=== PATIENT | male | born 2000 | race American Indian/Alaskan Native ===

== ENCOUNTER 2021-02-01 12:47 | Inpatient (IN) ==
[2021-02-01 13:27] LABS: Appearance Urine Clear (Clear); Bacteria Urine Automated Negative (Negative); Bilirubin Urine Negative (Negative); Blood Urine 1+ (Negative); Color Urine Yellow; Glucose Urine UA Negative (Negative); Ketones Urine Negative (Negative); Leukocyte Esterase Urine Negative (Negative); Nitrite Urine Negative (Negative); Protein Urine Negative (Negative); RBC Urine Automated 0-4 /hpf (0-4); Urobilinogen Urine Negative (Negative); pH Urine 5.5 (4.5-7.5)
[2021-02-01 13:41] LABS: Basophils # (auto) 0.09 K/uL (0-0.2); Basophils % (auto) 1.4 %; Eosinophils # (auto) 0.23 K/uL (0-0.5); Eosinophils % (auto) 3.7 %; Hemoglobin 15.7 g/dL (14.0-18.0); Mean Corpuscular Hemoglobin 27.7 pg (25-34); Mean Corpuscular Hgb Conc 33.4 g/dL (32-36); Mean Corpuscular Volume 82.9 fL (80-100); Mean Platelet Volume 10.1 fL (7.4-10.4); Monocytes # (auto) 0.47 K/uL (0.11-0.59); Monocytes % (auto) 7.6 %; Neutrophils # (auto) 2.63 K/uL (1.4-6.5); Neutrophils % (auto) 42.3 %; Platelet Count 231 K/uL (130-400); RDW Coefficient of Variation 13.3 % (11.5-14.5); RDW Standard Deviation 40.1 fL (36.4-46.3); Red Blood Count 5.67 M/uL (4.7-6.1); White Blood Count 6.22 K/uL (4.8-10.8)
[2021-02-01 13:48] LABS: Amphetamines+Metham, Urine Neg (Neg); Barbiturates, Urine Neg (Neg); Benzodiazepine, Urine Neg (Neg); Cocaine, Urine Neg (Neg); MDMA (Ecstacy), Urine Neg (Neg); Methadone, Urine Neg (Neg); Opiate, Urine Neg (Neg); Phencyclidine, Urine Neg (Neg)
[2021-02-01 13:58] LABS: Est GFR (African American) 128.1 ml/min; Est GFR (Non-African American) 110.5 ml/min; Potassium 4.5 mmol/L (3.5-5.1)
[2021-02-01 13:59] LABS: Albumin Level 4.2 gm/dl (3.4-5.0); BUN Creatinine Ratio 12.6 (10-20); Calcium 10.1 mg/dl (8.5-10.1); Creatinine Clr Calc Pharmacy 110.5 ml/min
[2021-02-01 14:09] LABS: Acetaminophen < 2 ug/ml (10-30); Albumin Globulin Ratio 0.9 (0.9-2); Bilirubin,Total 0.7 mg/dl (0.2-1); Globulin 4.6 gm/dl (2.5-4.0); Salicylate < 1.7 mg/dl (2.8-20); Thyroid Stimulating Hormone 0.558 uIu/ml (0.300-4.500); Total Protein 8.8 gm/dl (6.4-8.2)
--- NOTE | 2021-02-01 16:28 | Emergency Department Note ---
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 Patient feels he has been angry and stressed about school and he has been reporting that he has been thinking about killing himself by do shooting himself with a gun or overdosing on heroin. Patient reports he has never done heroin before in his life. Home Medications Medication Instructions Recorded Confirmed Type Remeron 15 mg PO HS 02/01/21 02/01/21 History Allergies Allergy/AdvReac Type Severity Reaction Status Date / Time No Known Allergies Allergy Unverified 02/01/21 13:12 Past Med/Surg History Medical History (Updated 02/01/21 @ 19:52 by Jose Wyman) No pertinent family history No pertinent past medical history Surgical History (Updated 02/01/21 @ 16:25 by Jose Wyman) No pertinent past surgical history Social History Smoking Status: Never smoker Preferred Language: Malay Communication Ability: Effective Operations Program Manager Required: No Beliefs That Will Affect Care: None Feels Safe at Home: Declines to Answer Assistive Devices: Contacts Review of Systems A total of 10 systems reviewed and were otherwise negative Physical Exam Vital Signs Vital Signs - 24 hr 02/01/21 13:02 02/01/21 15:30 Temperature 36.8 C Temperature Source Oral Pulse Rate 49 L Pulse Rate [Finger] 60 Respiratory Rate 16 14 Respiratory Effort / Characteristics Non-Labored Spontaneous Respiratory Depth Normal Blood Pressure 115/68 Blood Pressure [Left Arm] 125/84 Blood Pressure Mean 83 Blood Pressure Mean [Left Arm] 97 Pulse Oximetry 99 100 Oxygen Delivery Method Room Air Room Air Sepsis Recent Fever Within 48 Hours No Sepsis New/Unexplained Change in Mental Status N/A Sepsis Action Taken by Nursing No Action Required Physical Exam GENERAL: He is oriented to person, place, and time. He appears well-developed and well-nourished. He does not appear distressed. HENT: Exam performed. - Head: Normocephalic and atraumatic. - Right Ear: External ear normal. No mastoid tenderness. - Left Ear: External ear normal. No mastoid tenderness. - Mouth/Throat: The oropharynx is clear and moist. No trismus in the jaw. No dental abscesses or uvula swelling. No oropharyngeal exudate or tonsillar abscesses. EYES: Conjunctivae and EOM are normal. Pupils are equal, round, and reactive to light. Right eye exhibits no discharge. Left eye exhibits no discharge. No scleral icterus. NECK: Normal range of motion. Neck supple. No JVD present. No spinous process tenderness present. No carotid bruit present. No rigidity. No tracheal deviation and normal range of motion present. No Brudzinski's sign and no Kernig's sign noted. CV: Normal rate, regular rhythm, normal heart sounds and intact distal pulses. There is no peripheral edema. Palpable radial pulses bue. PULM/CHEST: Effort normal and breath sounds normal. No respiratory distress. No stridor. He has no wheezes. He has no rales. - Chest Wall: He exhibits no tenderness. ABD: The abdomen is soft. Bowel sounds are normal. He has no distension. No mass is present. There is no tenderness. There is no rebound, no guarding, no Ha's sign and no tenderness at McBurney's point. Rovsig negative. MUSC/SKEL: Normal range of motion. There is no peripheral edema, tenderness or deformity. LYMPH: No cervical adenopathy. NEURO: He is alert and oriented to person, place, and time. He has normal strength. No cranial nerve deficit or sensory deficit. Coordination and gait normal. GCS eye subscore is 4. GCS verbal subscore is 5. GCS motor subscore is 6. Cerebellar tests wnl. SKIN: Skin is warm and dry. He is not diaphoretic. PSYCH: Depressed and suicidal. Course Course 1304: The patient was evaluated in room A8. A complete history and physical exam was performed 1400: Patient medically cleared. Evaluated psychiatric evaluation and placement. Patient placed in observation at this time. 1726: Patient admitted to 3 S. Medical Decision Making Laboratory Data Result diagrams: 02/01/21 13:24 02/01/21 13:24 Lab Results 02/01/21 02/01/21 02/01/21 Range/Units 13:10 13:10 13:15 WBC (4.8-10.8) K/uL RBC (4.7-6.1) M/uL Hgb (14.0-18.0) g/dL Hct (42-52) % MCV (80-100) fL MCH (25-34) pg MCHC (32-36) g/dL RDW Std Deviation (36.4-46.3) fL RDW Coeff of Bora (11.5-14.5) % Plt Count (130-400) K/uL MPV (7.4-10.4) fL Immature Gran % (Auto) % Neut % (Auto) % Lymph % (Auto) % Stanton % (Auto) % Eos % (Auto) % Baso % (Auto) % Neut # (Auto) (1.4-6.5) K/uL Lymph # (Auto) (1.2-3.4) K/uL Stanton # (Auto) (0.11-0.59) K/uL Eos # (Auto) (0-0.5) K/uL Baso # (Auto) (0-0.2) K/uL Immature Gran # (Auto) (0.00-0.02) K/uL Sodium (136-145) mmol/L Potassium (3.5-5.1) mmol/L Chloride (98-107) mmol/L Carbon Dioxide (21-32) mmol/L Anion Gap (3-11) BUN (7-18) mg/dl Creatinine (0.6-1.4) mg/dl Est Cr Clr Drug Dosing ml/min Est GFR ( Amer) ml/min Est GFR (Non-Af Amer) ml/min BUN/Creatinine Ratio (10-20) Glucose (70-99) mg/dl Calcium (8.5-10.1) mg/dl Total Bilirubin (0.2-1) mg/dl AST (15-37) U/L ALT (12-78) U/L Alkaline Phosphatase (45-117) U/L Total Protein (6.4-8.2) gm/dl Albumin (3.4-5.0) gm/dl Globulin (2.5-4.0) gm/dl Albumin/Globulin Ratio (0.9-2) TSH (0.300-4.500) uIu/ml Urine Color Yellow Urine Appearance Clear (Clear) Urine pH 5.5 (4.5-7.5) Ur Specific [place] 1.020 (1.000-1.030) Urine Protein Negative (Negative) Urine Glucose (UA) Negative (Negative) Urine Ketones Negative (Negative) Urine Blood 1+ H (Negative) Urine Nitrite Negative (Negative) Urine Bilirubin Negative (Negative) Urine Urobilinogen Negative (Negative) Ur Leukocyte Esterase Negative (Negative) Urine WBC (Auto) 1-5 (0-5) /hpf Urine RBC (Auto) 0-4 (0-4) /hpf U Hyaline Cast (Auto) 1-5 (0-5) /lpf U Epithel Cells (Auto) 5-10 H (0-5) /lpf Urine Bacteria (Auto) Negative (Negative) Salicylates (2.8-20) mg/dl Urine Opiates Screen Neg (Neg) Ur Methadone, Qual Neg (Neg) Acetaminophen (10-30) ug/ml Urine Barbiturates Neg (Neg) Ur Phencyclidine (PCP) Neg (Neg) U Amphetamin/Meth Scrn Neg (Neg) MDMA (Ecstasy) Screen Neg (Neg) U Benzodiazepines Scrn Neg (Neg) Ur Cocaine Metabolite Neg (Neg) U Marijuana (THC) Screen Pos H (Neg) Ethyl Alcohol mg/dL (0-3) mg/dl COVID-19 [facility] SARS-CoV-2, RNA, NAAT (NEGATIVE) 02/01/21 02/01/21 02/01/21 Range/Units 13:15 13:24 13:24 WBC 6.22 (4.8-10.8) K/uL RBC 5.67 (4.7-6.1) M/uL Hgb 15.7 (14.0-18.0) g/dL Hct 47.0 (42-52) % MCV 82.9 (80-100) fL MCH 27.7 (25-34) pg MCHC 33.4 (32-36) g/dL RDW Std Deviation 40.1 (36.4-46.3) fL RDW Coeff of Bora 13.3 (11.5-14.5) % Plt Count 231 (130-400) K/uL MPV 10.1 (7.4-10.4) fL Immature Gran % (Auto) 0.0 % Neut % (Auto) 42.3 % Lymph % (Auto) 45.0 % Stanton % (Auto) 7.6 % Eos % (Auto) 3.7 % Baso % (Auto) 1.4 % Neut # (Auto) 2.63 (1.4-6.5) K/uL Lymph # (Auto) 2.80 (1.2-3.4) K/uL [place] # (Auto) 0.47 (0.11-0.59) K/uL Eos # (Auto) 0.23 (0-0.5) K/uL Baso # (Auto) 0.09 (0-0.2) K/uL Immature Gran # (Auto) 0.00 (0.00-0.02) K/uL Sodium 138 (136-145) mmol/L Potassium 4.5 (3.5-5.1) mmol/L Chloride 107 (98-107) mmol/L Carbon Dioxide 26 (21-32) mmol/L Anion Gap 5.0 (3-11) BUN 12 (7-18) mg/dl Creatinine 0.98 (0.6-1.4) mg/dl Est Cr Clr Drug Dosing 110.5 ml/min Est GFR ( Amer) 128.1 ml/min Est GFR (Non-Af Amer) 110.5 ml/min BUN/Creatinine Ratio 12.6 (10-20) Glucose 91 (70-99) mg/dl Calcium 10.1 (8.5-10.1) mg/dl Total Bilirubin 0.7 (0.2-1) mg/dl AST 8 L (15-37) U/L ALT 19 (12-78) U/L Alkaline Phosphatase 93 (45-117) U/L Total Protein 8.8 H (6.4-8.2) gm/dl Albumin 4.2 (3.4-5.0) gm/dl Globulin 4.6 H (2.5-4.0) gm/dl Albumin/Globulin Ratio 0.9 (0.9-2) TSH 0.558 (0.300-4.500) uIu/ml Urine Color Urine Appearance (Clear) Urine pH (4.5-7.5) Ur Specific [place] (1.000-1.030) Urine Protein (Negative) Urine Glucose (UA) (Negative) Urine Ketones (Negative) Urine Blood (Negative) Urine Nitrite (Negative) Urine Bilirubin (Negative) Urine Urobilinogen (Negative) Ur Leukocyte Esterase (Negative) Urine WBC (Auto) (0-5) /hpf Urine RBC (Auto) (0-4) /hpf U Hyaline Cast (Auto) (0-5) /lpf U Epithel Cells (Auto) (0-5) /lpf Urine Bacteria (Auto) (Negative) Salicylates (2.8-20) mg/dl Urine Opiates Screen (Neg) Ur Methadone, Qual (Neg) Acetaminophen (10-30) ug/ml Urine Barbiturates (Neg) Ur Phencyclidine (PCP) (Neg) U Amphetamin/Meth Scrn (Neg) MDMA (Ecstasy) Screen (Neg) U Benzodiazepines Scrn (Neg) Ur Cocaine Metabolite (Neg) U Marijuana (THC) Screen (Neg) Ethyl Alcohol mg/dL (0-3) mg/dl COVID-19 Eval Order SARS-CoV-2, RNA, NAAT NEGATIVE (NEGATIVE) 02/01/21 02/01/21 Range/Units 13:24 13:24 WBC (4.8-10.8) K/uL RBC (4.7-6.1) M/uL Hgb (14.0-18.0) g/dL Hct (42-52) % MCV (80-100) fL MCH (25-34) pg MCHC (32-36) g/dL RDW Std Deviation (36.4-46.3) fL RDW Coeff of Bora (11.5-14.5) % Plt Count (130-400) K/uL MPV (7.4-10.4) fL Immature Gran % (Auto) % Neut % (Auto) % Lymph % (Auto) % Stanton % (Auto) % Eos % (Auto) % Baso % (Auto) % Neut # (Auto) (1.4-6.5) K/uL Lymph # (Auto) (1.2-3.4) K/uL [place] # (Auto) (0.11-0.59) K/uL Eos # (Auto) (0-0.5) K/uL Baso # (Auto) (0-0.2) K/uL Immature Gran # (Auto) (0.00-0.02) K/uL Sodium (136-145) mmol/L Potassium (3.5-5.1) mmol/L Chloride (98-107) mmol/L Carbon Dioxide (21-32) mmol/L Anion Gap (3-11) BUN (7-18) mg/dl Creatinine (0.6-1.4) mg/dl Est Cr Clr Drug Dosing ml/min Est GFR ( Amer) ml/min Est GFR (Non-Af Amer) ml/min BUN/Creatinine Ratio (10-20) Glucose (70-99) mg/dl Calcium (8.5-10.1) mg/dl Total Bilirubin (0.2-1) mg/dl AST (15-37) U/L ALT (12-78) U/L Alkaline Phosphatase (45-117) U/L Total Protein (6.4-8.2) gm/dl Albumin (3.4-5.0) gm/dl Globulin (2.5-4.0) gm/dl Albumin/Globulin Ratio (0.9-2) TSH (0.300-4.500) uIu/ml Urine Color Urine Appearance (Clear) Urine pH (4.5-7.5) Ur Specific [place] (1.000-1.030) Urine Protein (Negative) Urine Glucose (UA) (Negative) Urine Ketones (Negative) Urine Blood (Negative) Urine Nitrite (Negative) Urine Bilirubin (Negative) Urine Urobilinogen (Negative) Ur Leukocyte Esterase (Negative) Urine WBC (Auto) (0-5) /hpf Urine RBC (Auto) (0-4) /hpf U Hyaline Cast (Auto) (0-5) /lpf U Epithel Cells (Auto) (0-5) /lpf Urine Bacteria (Auto) (Negative) Salicylates < 1.7 L (2.8-20) mg/dl Urine Opiates Screen (Neg) Ur Methadone, Qual (Neg) Acetaminophen < 2 L (10-30) ug/ml Urine Barbiturates (Neg) Ur Phencyclidine (PCP) (Neg) U Amphetamin/Meth Scrn (Neg) MDMA (Ecstasy) Screen (Neg) U Benzodiazepines Scrn (Neg) Ur Cocaine Metabolite (Neg) U Marijuana (THC) Screen (Neg) Ethyl Alcohol mg/dL < 3.0 (0-3) mg/dl COVID-19 Eval Order SARS-CoV-2, RNA, NAAT (NEGATIVE) MDM Narrative Observation note Indication: Psych eval/placement Patient, with no past medical history was first seen at 1304 hrs and the observ ation time began at 1400 hrs and was necessary in order to have psych evaluation completed . Upon re-evaluation, 3 hours and 26 minutes of observation revealed that the patient should be admitted to 3 S. Disposition date and time February 01, 2021 1726. Impression & Plan Depression with suicidal ideation Discharge Plan Visit Data Chief Complaint: Mental Health Evaluation Stated Complaint: MHID ED Provider: Jose Wyman Discharge Problem: Depression with suicidal ideation Patient Disposition: Admitted As Inpatient Discharge Instructions Interventions: ED Discharge Assessment Last Done: 02/01/21 17:26
[2021-02-01] MEDS ORDERED: BISMUTH SUBSALICYLATE LIQD 236 ML PO PRN (17:02)
[2021-02-01] MEDS ORDERED: SODIUM CHLORIDE 0.65% NA SOLN 45 ML (OCEAN) PRN (17:02)
[2021-02-01] MEDS ORDERED: MAGNESIUM HYDROXIDE SUSP 30 ML UDC PO PRN (17:02)
[2021-02-01] MEDS ORDERED: ACETAMINOPHEN 325 MG TAB PO PRN (17:02)
[2021-02-01] MEDS ORDERED: hydrOXYzine HCl 25 MG TAB PO PRN ×2 (17:02)
[2021-02-01] MEDS ORDERED: ALUMINUM/MAGNESIUM SUSP 30 ML UDC PO PRN (17:02)
[2021-02-01] MEDS ORDERED: MIRTAZAPINE TAB 15 MG TAB PO SCH (22:00)
--- NOTE | 2021-02-01 22:53 | Electrocardiogram Report ---
Test Reason : Blood Pressure : / mmHG Vent. Rate : 066 BPM Atrial Rate : 066 BPM P-R Int : 140 ms QRS Dur : 106 ms QT Int : 432 ms P-R-T Axes : 068 070 065 degrees QTc Int : 452 ms Sinus rhythm with marked sinus arrhythmia Otherwise normal ECG No previous ECGs available Confirmed by Oneil Trujillo ([id number]) on 02/01/2021 10:52:55 PM Referred By: REFERRED SELF Confirmed By:Oneil Trujillo
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
[2021-02-02] MEDS: hydrOXYzine HCl 25 MG TAB PO SCH (21:08)
[2021-02-03] MEDS ORDERED: MELATONIN 3 MG TAB PO PRN (12:15)
[2021-02-03] MEDS: FLUoxetine HCL 20 MG CAP PO SCH (12:56)
--- NOTE | 2021-02-03 13:01 | Psychiatric Progress Note ---
Date of Service February 03, 2021 Impression / Recommendations Impression 20 yo man with history of depression, self-harm, restricted eating and SI who was admitted for worsening depression, self-harm urges and SI with plans. Diagnostically consistent with MDD in addition to possible BPD. He is felt to be at high acute risk given intermittent SI and self-harm urges and in need of inpatient psychiatric treatment. Discussed medication and treatment options at length including importance of therapy and attending groups. Discussed option of SSRI vs SNRI and he would like to try fluoxetine since he only had one full trial of a previous SSRI (sertraline in high school) and then recently mirtazapine but at low dose for sleep. Discussed medication treatment options in detail. Discussed risks, benefits and alternatives. Patient would like to start fluoxetine for MDD and anxiety and melatonin for sleep phase shift. Restrictive eating has improved since being admitted and he credits the three regularly structured meal times as helpful for preventing this. Counseled on black box warning of potential for emergence of or increased SI and need to let staff know should this occur or should they feel unsafe. Also discussed importance of seeking emergency care following discharge if this side effect occurs in the future. If SI persists could consider addition of low dose Li or abilify for augmentation. 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 Starting fluoxetine 20mg qd for MDD and anxiety and adding melatonin to help with phase shift of sleep. Also has atarax available for qhs for sleep. 02/02/21: The patient was admitted to the [facility] ([facility] mental health unit) on q15 min checks (behavioral with suicide precautions) for safety. The patient will participate in group, recreational, and milieu therapies and will be offered additional individual and family sessions as clinically appropriate. Monitor PO intake. D/C Remeron and ofter Vistaril this hs. Considering Abilify or an SNRI. Patient wanted to defer this discussion until tomorrow. Risk Factors Assessment Do You Have Access To A Gun?: No Protective Factors Assessment Employed: No Interval History Identifying Information 20 yo man with history of depression, self-harm, restricted eating and SI who was admitted for worsening depression, self-harm urges and SI with plans. Chief Complaint "I'm eating better here with scheduled meals". Review of Systems Sleep Information Total Hours of Sleep: 6.5 Sleep Comments: pt awoke due to roommate admit to room. pt on q-15 minute checks Meal Information Percent Meal Consumed - Breakfast: 100 Percent Meal Consumed - Lunch: 100 Percent Meal Consumed - Dinner: 100 Subjective Subjective Chart and events of last 24 hours reviewed and discussed with multidisciplinary treatment team including nursing and social work. No acute events reported overnight. Slept well. Eating well. Attending some groups. Adherent with medications. Today endorses ongoing depressed mood with intermittent urges for self-harm and SI but feels safe on the unit. Agrees he will talk to staff if these urges or thoughts make him feel unsafe. Discussed his past treatment and mood symptoms-he feels depression and anxiety including social anxiety are most prominent. Feels that he may have BPD and is interested in a potential diagnosis of this, if felt to be accurate, as he sometimes feels like he doesn't desire treatment or help and that this diagnosis would allow him to feel more validated in seeking psychiatric and therapy treatment. Sleep is challenging, stays up late and then has insomnia and nighttime awakenings. Spent more than 20 minutes in the care and coordination of this patient of which greater than 50% was dedicated to counseling and coordination of care. Physical Exam Psychiatric Orientation: alert and oriented x 3 Apperance: appropriately dressed and appropriately groomed Eye Contact: + fair eye contact Motor Behavior: steady gait and station and no abnormal motor movements Speech: normal rate/rhythm/volume of speech Affect: + flat affect Mood: + depressed mood and + anxious mood Thought Process: goal directed thought process and linear/logical thought process Thought Content: reality based without delusions intermittent SI Homicidal Thoughts: denies homicidal thoughts Hallucinations: no auditory hallucinations and no visual hallucinations Cognition: recent memory grossly intact, remote memory grossly intact, attention grossly intact and language grossly intact Estimated Intelligence: consistent with education level Insight: + fair insight Judgement: + fair judgement Vital Signs (Past 24 Hours) Last Vital Signs Temp 36.4 C L 02/03/21 06:00 Pulse 68 02/03/21 06:49 Resp 16 02/03/21 06:00 BP 115/77 02/03/21 06:49 Pulse Ox 100 02/01/21 15:30 Results & Data ([facility]) Current Inpatient Medications Current Inpatient Medications: Current Inpatient Medications Acetaminophen (Acetaminophen 325 Mg Tab) 650 mg PO Q4H PRN PRN Reason: Headache or Minor Fever Stop: 03/03/21 17:01 Al Hydrox/Mg Hydrox/Simethicone (Aluminum/Magnesium Susp 30 Ml Udc) 30 ml PO Q4H PRN PRN Reason: GI Upset Stop: 03/03/21 17:01 Bismuth Subsalicylate (Bismuth Subsalicylate Liqd 236 Ml) 15 ml PO PRN PRN PRN Reason: Loose Stool Stop: 03/03/21 17:01 Fluoxetine HCl (Fluoxetine Hcl 20 Mg Cap) 20 mg PO QAM ANASTASIA Stop: 03/05/21 12:14 Hydroxyzine HCl (Hydroxyzine Hcl 25 Mg Tab) 25 mg PO Q4H PRN PRN Reason: Anxiety Stop: 03/03/21 17:01 Hydroxyzine HCl (Hydroxyzine Hcl 25 Mg Tab) 50 mg PO HSZ ANASTASIA Stop: 03/04/21 21:59 Last Admin: 02/02/21 21:08 Dose: 50 mg Documented by: Magnesium Hydroxide (Magnesium Hydroxide Susp 30 Ml Udc) 30 ml PO DAILY PRN PRN Reason: Constipation Stop: 03/03/21 17:01 Melatonin (Melatonin 3 Mg Tab) 3 mg PO HS PRN PRN Reason: Sleep Stop: 03/05/21 12:14 Sodium Chloride (Sodium Chloride 0.65% Na Soln 45 Ml ([place])) 1 - 2 sprays NA PRN PRN PRN Reason: Nasal Dryness/Congestion Stop: 03/03/21 17:01 Mental Health & Subst Abuse Tx Therapist Name of Therapist: HERO English Teacher Name of English Teacher: [facility] FRANKIE Brandt Phone Number for English Teacher: [phone] Date of Appointment with English Teacher: 02/09/21 Time of Appointment with English Teacher: 12 p.m. Case Management Appointment Comment: [facility] Post Discharge Appointments Primary Care Physician Name Of Family Doctor: [facility] Primary Care Provider Appointment Comment: [facility] Contact Information Discharge Discharge Address: [address] [place] [address], [place] [address]
[2021-02-03] MEDS: hydrOXYzine HCl 25 MG TAB PO SCH (21:23)
[2021-02-04 06:51] LABS: Marijuana Quant, GCMS Urine 812 ng/mL (<5)
[2021-02-04] MEDS: FLUoxetine HCL 20 MG CAP PO SCH (09:26)
--- NOTE | 2021-02-04 15:09 | Psychiatric Progress Note ---
Date of Service February 04, 2021 Impression / Recommendations Impression 20 yo man with history of depression, self-harm, restricted eating and SI who was admitted for worsening depression, self-harm urges and SI with plans. Diagnostically consistent with MDD in addition to possible BPD. He is felt to be at high acute risk given intermittent SI and self-harm urges and in need of inpatient psychiatric treatment. Discussed his use of marijuana and how he feels this is tied to his mood episodes as when he doesn't smoke marijuana he feels his depression gets worse. Precontemplative currently about marijuana use. Remains depressed and withdrawn but engaged with individual therapeutic interventions with staff and working on CBT and DBT coping skills and cognitive distortions. Tolerating fluoxetine initiation. Willing to now involve family. Positive BPD Katarina screen. If SI persists could consider addition of low dose Li or abilify for augmentation. 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 Atarax working well for sleep. Positive screen on Katarina BPD screening tool. Continues to present with symptoms of major depression. Willing to have his family involved and signed ROIs (with some exceptions to what he feels comfortable having shared with them). 02/03/21: Patient provided with Katarina BPD screening tool. Starting fluoxetine 20mg qd for MDD and anxiety and adding melatonin to help with phase shift of sleep. Also has atarax available for qhs for sleep. 02/02/21: The patient was admitted to the [facility] ([facility]) on q15 min checks (behavioral with suicide precautions) for safety. The patient will participate in group, recreational, and milieu therapies and will be offered additional individual and family sessions as clinically appropriate. Monitor PO intake. D/C Remeron and ofter Vistaril this hs. Considering Abilify or an SNRI. Patient wanted to defer this discussion until tomorrow. Risk Factors Assessment Do You Have Access To A Gun?: No Protective Factors Assessment Employed: No Interval History Identifying Information 20 yo man with history of depression, self-harm, restricted eating and SI who was admitted for worsening depression, self-harm urges and SI with plans. Chief Complaint "I'm ok". Review of Systems Sleep Information Total Hours of Sleep: 5.75 Sleep Comments: pt awoke due to roommate admit to room. pt on q-15 minute checks Meal Information Percent Meal Consumed - Breakfast: 90 Percent Meal Consumed - Lunch: 90 Percent Meal Consumed - Dinner: 100 Subjective Subjective Chart and events of last 24 hours reviewed and discussed with multidisciplinary treatment team including nursing and social work. No acute events reported overnight. Slept well. Eating well. Attending groups. Adherent with medications. Remains withdrawn but has been working on the coping skills workbook and meeting with staff for individual therapeutic interventions including working on cognitive distortions and core beliefs yesterday. Eating remains stable without restricting. He remains depressed and continues to have intermittent SI but feels safe in the hospital and feels he can go to staff if he started to feel unsafe. Tolerating fluoxetine well so far without any side effects. Spent more than 20 minutes in the care and coordination of this patient of which greater than 50% was dedicated to counseling and coordination of care. Physical Exam Psychiatric Orientation: alert and oriented x 3 Apperance: appropriately dressed and appropriately groomed Eye Contact: + fair eye contact Motor Behavior: steady gait and station and no abnormal motor movements Speech: normal rate/rhythm/volume of speech Affect: + flat affect Mood: + depressed mood and + anxious mood Thought Process: goal directed thought process Thought Content: reality based without delusions Suicidal Thoughts: denies suicidal intent; + reports suicidal thoughts and + reports suicidal plan Homicidal Thoughts: denies homicidal thoughts Hallucinations: no auditory hallucinations and no visual hallucinations Cognition: recent memory grossly intact, remote memory grossly intact, attention grossly intact and language grossly intact Estimated Intelligence: consistent with education level Insight: + fair insight Judgement: + fair judgement Vital Signs (Past 24 Hours) Last Vital Signs Temp 36.4 C L 02/04/21 06:00 Pulse 82 02/04/21 06:36 Resp 14 02/04/21 06:00 BP 115/69 02/04/21 06:36 Pulse Ox 100 02/01/21 15:30 Results & Data ([facility]) Laboratory Results Laboratory Results - last 24 hr 02/01/21 13:10 U Marijuana THC Carboxy 812 H Drug Screen Comment SEE NOTE Current Inpatient Medications Current Inpatient Medications: Current Inpatient Medications Acetaminophen (Acetaminophen 325 Mg Tab) 650 mg PO Q4H PRN PRN Reason: Headache or Minor Fever Stop: 03/03/21 17:01 Al Hydrox/Mg Hydrox/Simethicone (Aluminum/Magnesium Susp 30 Ml Udc) 30 ml PO Q4H PRN PRN Reason: GI Upset Stop: 03/03/21 17:01 Bismuth Subsalicylate (Bismuth Subsalicylate Liqd 236 Ml) 15 ml PO PRN PRN PRN Reason: Loose Stool Stop: 03/03/21 17:01 Fluoxetine HCl (Fluoxetine Hcl 20 Mg Cap) 20 mg PO QAM ANASTASIA Stop: 03/05/21 12:14 Last Admin: 02/04/21 09:26 Dose: 20 mg Documented by: Hydroxyzine HCl (Hydroxyzine Hcl 25 Mg Tab) 25 mg PO Q4H PRN PRN Reason: Anxiety Stop: 03/03/21 17:01 Hydroxyzine HCl (Hydroxyzine Hcl 25 Mg Tab) 50 mg PO HSZ ANASTASIA Stop: 03/04/21 21:59 Last Admin: 02/03/21 21:23 Dose: 50 mg Documented by: Magnesium Hydroxide (Magnesium Hydroxide Susp 30 Ml Udc) 30 ml PO DAILY PRN PRN Reason: Constipation Stop: 03/03/21 17:01 Melatonin (Melatonin 3 Mg Tab) 3 mg PO HS PRN PRN Reason: Sleep Stop: 03/05/21 12:14 Sodium Chloride (Sodium Chloride 0.65% Na Soln 45 Ml ([place])) 1 - 2 sprays NA PRN PRN PRN Reason: Nasal Dryness/Congestion Stop: 03/03/21 17:01 Mental Health & Subst Abuse Tx Therapist Name of Therapist: HERO Handkerchief Sample Clerk Name of Handkerchief Sample Clerk: [facility] FRANKIE Brandt Phone Number for Handkerchief Sample Clerk: [phone] Date of Appointment with Handkerchief Sample Clerk: 02/09/21 Time of Appointment with Handkerchief Sample Clerk: 12 p.m. Case Management Appointment Comment: [facility] Post Discharge Appointments Primary Care Physician Name Of Family Doctor: [facility] Primary Care Provider Appointment Comment: [facility] Contact Information Discharge Discharge Address: [address] [place] [address], [address], [place], [place] [address]
[2021-02-04] MEDS: hydrOXYzine HCl 25 MG TAB PO SCH (21:10)
[2021-02-05] MEDS: FLUoxetine HCL 20 MG CAP PO SCH (11:20)
--- NOTE | 2021-02-05 16:25 | Psychiatric Progress Note ---
Date of Service February 05, 2021 Impression / Recommendations Impression 20 yo man with history of depression, self-harm, restricted eating and SI who was admitted for worsening depression, self-harm urges and SI with plans. Diagnostically consistent with MDD in addition to possible BPD. He is felt to be at high acute risk given intermittent SI and self-harm urges and in need of inpatient psychiatric treatment. Remains depressed and withdrawn but engaged with individual therapeutic interventions with staff and working on CBT and DBT coping skills and cognitive distortions. Tolerating fluoxetine and having more positive engagements with family. 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 Discussed risks, benefits and alternatives including trazodone risks of priapism, sedation, and potential for emergence of SI. Patient would like to start trazodone for insomnia and depression. He also consented to increasing the dose of prozac from 20mg to 30mg qd. 02/04/21: Continue with fluoxetine 20mg qd, will be slow with titration given his past experience of emotional blunting while on SSRI. Atarax working well for sleep. Positive screen on Katarina BPD screening tool. Continues to present with symptoms of major depression. Willing to have his family involved and signed ROIs (with some exceptions to what he feels comfortable having shared with them). 02/03/21: Patient provided with Katarina BPD screening tool. Starting fluoxetine 20mg qd for MDD and anxiety and adding melatonin to help with phase shift of sleep. Also has atarax available for qhs for sleep. 02/02/21: The patient was admitted to the [facility] ([facility] mental health unit) on q15 min checks (behavioral with suicide precautions) for safety. The patient will participate in group, recreational, and milieu therapies and will be offered additional individual and family sessions as clinically appropriate. Monitor PO intake. D/C Remeron and ofter Vistaril this hs. Considering Abilify or an SNRI. Patient wanted to defer this discussion until tomorrow. Risk Factors Assessment Do You Have Access To A Gun?: No Protective Factors Assessment Employed: No Interval History Identifying Information 20 yo man with history of depression, self-harm, restricted eating and SI who was admitted for worsening depression, self-harm urges and SI with plans. Chief Complaint "I'm ok". Review of Systems Sleep Information Total Hours of Sleep: 5.75 Sleep Comments: pt appeared to sleep 3.5 hrs during evening shift. pt given vistaril per rn. pt on q-15 minute checks Meal Information Percent Meal Consumed - Breakfast: 90 Percent Meal Consumed - Lunch: 100 Percent Meal Consumed - Dinner: 100 Subjective Subjective Chart and events of last 24 hours reviewed and discussed with multidisciplinary treatment team including nursing and social work. No acute events reported overnight. Had difficulty sleeping. Eating well. Remains isolative to his room. Adherent with medications. Today he reports "ok" mood and no SI. He had two good conversations over the phone with his family last night and this morning. These calls usually prompt him to feel suicidal but this didn't happen on either occasion. Feels he's starting to see there are more options in life such as family supporting the idea that he may want to take extra time in college so he can explore other interests like music and designing cars. No medication side effects. Spent more than 20 minutes in the care and coordination of this patient of which greater than 50% was dedicated to counseling and coordination of care. Physical Exam Psychiatric Orientation: alert and oriented x 3 Apperance: appropriately dressed and appropriately groomed Eye Contact: + fair eye contact Motor Behavior: steady gait and station and no abnormal motor movements Speech: normal rate/rhythm/volume of speech Affect: + depressed affect Mood: + depressed mood and + anxious mood Thought Process: goal directed thought process Thought Content: reality based without delusions Suicidal Thoughts: denies suicidal thoughts Homicidal Thoughts: denies homicidal thoughts Hallucinations: no auditory hallucinations and no visual hallucinations Cognition: recent memory grossly intact, remote memory grossly intact, attention grossly intact and language grossly intact Estimated Intelligence: consistent with education level Insight: + fair insight Judgement: + fair judgement Vital Signs (Past 24 Hours) Last Vital Signs Temp 36.7 C 02/05/21 06:51 Pulse 70 02/05/21 06:52 Resp 16 02/05/21 06:51 BP 113/68 02/05/21 06:52 Pulse Ox 100 02/01/21 15:30 Results & Data ([facility]) Current Inpatient Medications Current Inpatient Medications: Current Inpatient Medications Acetaminophen (Acetaminophen 325 Mg Tab) 650 mg PO Q4H PRN PRN Reason: Headache or Minor Fever Stop: 03/03/21 17:01 Al Hydrox/Mg Hydrox/Simethicone (Aluminum/Magnesium Susp 30 Ml Udc) 30 ml PO Q4H PRN PRN Reason: GI Upset Stop: 03/03/21 17:01 Last Admin: 02/05/21 12:37 Dose: 30 ml Documented by: Bismuth Subsalicylate (Bismuth Subsalicylate Liqd 236 Ml) 15 ml PO PRN PRN PRN Reason: Loose Stool Stop: 03/03/21 17:01 Fluoxetine HCl (Fluoxetine Hcl 20 Mg Cap) 20 mg PO QAM ANASTASIA Stop: 03/05/21 12:14 Last Admin: 02/05/21 11:20 Dose: 20 mg Documented by: Hydroxyzine HCl (Hydroxyzine Hcl 25 Mg Tab) 25 mg PO Q4H PRN PRN Reason: Anxiety Stop: 03/03/21 17:01 Hydroxyzine HCl (Hydroxyzine Hcl 25 Mg Tab) 50 mg PO HSZ ANASTASIA Stop: 03/04/21 21:59 Last Admin: 02/04/21 21:10 Dose: 50 mg Documented by: Magnesium Hydroxide (Magnesium Hydroxide Susp 30 Ml Udc) 30 ml PO DAILY PRN PRN Reason: Constipation Stop: 03/03/21 17:01 Melatonin (Melatonin 3 Mg Tab) 3 mg PO HS PRN PRN Reason: Sleep Stop: 03/05/21 12:14 Sodium Chloride (Sodium Chloride 0.65% Na Soln 45 Ml ([place])) 1 - 2 sprays NA PRN PRN PRN Reason: Nasal Dryness/Congestion Stop: 03/03/21 17:01 Mental Health & Subst Abuse Tx Therapist Name of Therapist: [facility] Volunteer Manager Name of Volunteer Manager: [facility] FRANKIE Brandt Phone Number for Volunteer Manager: [phone] Date of Appointment with Volunteer Manager: 02/09/21 Time of Appointment with Volunteer Manager: 12 p.m. Case Management Appointment Comment: [facility] Post Discharge Appointments Primary Care Physician Name Of Family Doctor: [facility] Primary Care Provider Appointment Comment: [facility] Contact Information Discharge Discharge Address: [address] [place] [address], [place] [address]
[2021-02-05] MEDS ORDERED: hydrOXYzine HCl 25 MG TAB PO PRN (16:26)
[2021-02-05] MEDS: traZODone HCL 50 MG TAB PO SCH (21:56)
[2021-02-06] MEDS: FLUoxetine HCL 10 MG CAP PO SCH (08:46)
--- NOTE | 2021-02-06 17:01 | Psychiatric Progress Note ---
Date of Service February 06, 2021 Impression / Recommendations Impression 20 yo man with history of depression, self-harm, restricted eating and SI who was admitted for worsening depression, self-harm urges and SI with plans. Diagnostically consistent with MDD in addition to possible BPD. He is felt to be at high acute risk given intermittent SI and self-harm urges and in need of inpatient psychiatric treatment. Remains depressed and withdrawn but engaged with individual therapeutic interventions with staff and working on CBT and DBT coping skills and cognitive distortions. Tolerating fluoxetine and having more positive engagements with family. Still having periods of SI, such as last night with thought of holding a gun to his head, though feels he can get rid of the thoughts much faster. Remains in need of inpatient level of care. 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 Discussed option to augment with wellbutrin in the future, after 4-6 weeks of prozac, if he finds that concentration and inattention are still problematic. Working on ensuring he has outpatient care since therapy and CBT approaches are helping him here in the hospital. Provided with adult ADHD self-report scale. 02/05/21: He's having trouble sleeping and is interested in trying something besides atarax and melatonin. Discussed risks, benefits and alternatives including trazodone risks of priapism, sedation, and potential for emergence of SI. Patient would like to start trazodone for insomnia and depression. He also consented to increasing the dose of prozac from 20mg to 30mg qd. 02/04/21: Continue with fluoxetine 20mg qd, will be slow with titration given his past experience of emotional blunting while on SSRI. Atarax working well for sleep. Positive screen on Katarina BPD screening tool. Continues to present with symptoms of major depression. Willing to have his family involved and signed ROIs (with some exceptions to what he feels comfortable having shared with them). 02/03/21: Patient provided with Katarina BPD screening tool. Starting fluoxetine 20mg qd for MDD and anxiety and adding melatonin to help with phase shift of sleep. Also has atarax available for qhs for sleep. 02/02/21: The patient was admitted to the [facility] (locked inpatient mental health unit) on q15 min checks (behavioral with suicide precautions) for safety. The patient will participate in group, recreational, and milieu therapies and will be offered additional individual and family sessions as clinically appropriate. Monitor PO intake. D/C Remeron and ofter Vistaril this hs. Considering Abilify or an SNRI. Patient wanted to defer this discussion until tomorrow. Risk Factors Assessment Do You Have Access To A Gun?: No Protective Factors Assessment Employed: No Interval History Identifying Information 20 yo man with history of depression, self-harm, restricted eating and SI who was admitted for worsening depression, self-harm urges and SI with plans. Chief Complaint "I had a good family meeting". Review of Systems Sleep Information Total Hours of Sleep: 6 Sleep Comments: pt appeared to sleep 3.5 hrs during evening shift. pt given vistaril per rn. pt on q-15 minute checks Meal Information Percent Meal Consumed - Breakfast: 100 Percent Meal Consumed - Lunch: 90 Percent Meal Consumed - Dinner: 100 Subjective Subjective Chart and events of last 24 hours reviewed and discussed with multidisciplinary treatment team including nursing and social work. No acute events reported overnight. Slept well. Eating well. Attending groups. Adherent with medications. Today he reports improved sleep with the trazodone and no side effects nor with the increased dose of prozac. He feels his mood is "good" today after a good family meeting but notes that he did have SI last night as he was going to bed of "holding a gun to my head" though reports he was able to move on from this thought quickly. He wonders about ADHD symptoms and we review the challenge of diagnosing this in adulthood especially in the midst of a major depressive episode. But had him fill out a ADHD adult self-report scale. Discussed how anxiety can also mimic ADHD symtpoms. Spent more than 20 minutes in the care and coordination of this patient of which greater than 50% was dedicated to counseling and coordination of care. Physical Exam Psychiatric Orientation: alert and oriented x 3 Apperance: appropriately dressed and appropriately groomed Eye Contact: + fair eye contact Motor Behavior: steady gait and station and no abnormal motor movements Speech: normal rate/rhythm/volume of speech Affect: + flat affect Mood: + depressed mood Thought Process: linear/logical thought process Thought Content: reality based without delusions Suicidal Thoughts: + reports suicidal thoughts (SI last night of holding gun to his head) Homicidal Thoughts: denies homicidal thoughts Hallucinations: no auditory hallucinations and no visual hallucinations Cognition: recent memory grossly intact, remote memory grossly intact, attention grossly intact and language grossly intact Estimated Intelligence: consistent with education level Insight: + fair insight Judgement: + fair judgement Vital Signs (Past 24 Hours) Last Vital Signs Temp 36.7 C 02/06/21 06:38 Pulse 56 L 02/06/21 06:38 Resp 16 02/06/21 06:38 BP 127/77 02/06/21 06:38 Pulse Ox 100 02/01/21 15:30 Results & Data ([facility]) Current Inpatient Medications Current Inpatient Medications: Current Inpatient Medications Acetaminophen (Acetaminophen 325 Mg Tab) 650 mg PO Q4H PRN PRN Reason: Headache or Minor Fever Stop: 03/03/21 17:01 Al Hydrox/Mg Hydrox/Simethicone (Aluminum/Magnesium Susp 30 Ml Udc) 30 ml PO Q4H PRN PRN Reason: GI Upset Stop: 03/03/21 17:01 Last Admin: 02/05/21 12:37 Dose: 30 ml Documented by: Bismuth Subsalicylate (Bismuth Subsalicylate Liqd 236 Ml) 15 ml PO PRN PRN PRN Reason: Loose Stool Stop: 03/03/21 17:01 Fluoxetine HCl (Fluoxetine Hcl 10 Mg Cap) 30 mg PO QAM ANASTASIA Stop: 03/08/21 08:59 Last Admin: 02/06/21 08:46 Dose: 30 mg Documented by: Hydroxyzine HCl (Hydroxyzine Hcl 25 Mg Tab) 25 mg PO Q4H PRN PRN Reason: Anxiety Stop: 03/03/21 17:01 Hydroxyzine HCl (Hydroxyzine Hcl 25 Mg Tab) 50 mg PO HSZ PRN PRN Reason: Anxiety/Insomnia Stop: 03/04/21 21:59 Magnesium Hydroxide (Magnesium Hydroxide Susp 30 Ml Udc) 30 ml PO DAILY PRN PRN Reason: Constipation Stop: 03/03/21 17:01 Melatonin (Melatonin 3 Mg Tab) 3 mg PO HS PRN PRN Reason: Sleep Stop: 03/05/21 12:14 Sodium Chloride (Sodium Chloride 0.65% Na Soln 45 Ml ([place])) 1 - 2 sprays NA PRN PRN PRN Reason: Nasal Dryness/Congestion Stop: 03/03/21 17:01 Trazodone HCl (Trazodone Hcl 50 Mg Tab) 50 mg PO HS ANASTASIA Stop: 03/07/21 21:59 Last Admin: 02/05/21 21:56 Dose: 50 mg Documented by: Mental Health & Subst Abuse Tx Psychiatrist Name of Psychiatrist: being referred to [facility] by Kolby DAVID Therapist Name of Therapist: Soumya Daley Therapist's Date of Therapist Appointment: 02/15/21 Time of Therapist Appointment: 3pm Therapy Appointment Comment: [employer] Rn Interventional Name of Rn Interventional: [facility] FRANKIE Brandt Phone Number for Rn Interventional: [phone] Date of Appointment with Rn Interventional: 02/09/21 Time of Appointment with Rn Interventional: 12 p.m. Case Management Appointment Comment: [facility]- will refer him to [facility] for psychiatry Post Discharge Appointments Primary Care Physician Name Of Family Doctor: [facility] Primary Care Date of Appointment with PCP: 02/12/21 Time of Appointment with PCP: 10 a.m Provider Appointment Comment: [facility] Contact Information Discharge Discharge Address: [address] [place] [address], [address], [place] [address]
[2021-02-06] MEDS: traZODone HCL 50 MG TAB PO SCH (21:23)
[2021-02-07] MEDS: FLUoxetine HCL 10 MG CAP PO SCH (10:18)
--- NOTE | 2021-02-07 19:07 | Psychiatric Progress Note ---
Date of Service February 07, 2021 Impression / Recommendations Impression 20 yo man with history of depression, self-harm, restricted eating and SI who was admitted for worsening depression, self-harm urges and SI with plans. Diagnostically consistent with MDD in addition to possible BPD. He is felt to be at high acute risk given intermittent SI and self-harm urges and in need of inpatient psychiatric treatment. Depression is improving and he is finding CBT and DBT coping skills and cognitive distortions work helpful. Tolerating fluoxetine and having more positive engagements with family. Still having periods of SI, such as last night with another intrusive thought of SI, though feels he can get rid of the thoughts much faster within a few seconds. Remains in need of inpatient level of care. 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 Discussed limitations in that many of these symptoms overlap with depression and anxiety. Offered option to try addition of Wellbutrin to help with concentration, focus and antidepressant effect now versus in the future, he would prefer to discuss with his PCP in the future should concentration issues persist despite improving depression. 02/06/21: Continue with trazodone and prozac. Discussed option to augment with w ellbutrin in the future, after 4-6 weeks of prozac, if he finds that concentration and inattention are still problematic. Working on ensuring he has outpatient care since therapy and CBT approaches are helping him here in the hospital. Provided with adult ADHD self-report scale. 02/05/21: He's having trouble sleeping and is interested in trying something besides atarax and melatonin. Discussed risks, benefits and alternatives including trazodone risks of priapism, sedation, and potential for emergence of SI. Patient would like to start trazodone for insomnia and depression. He also consented to increasing the dose of prozac from 20mg to 30mg qd. 02/04/21: Continue with fluoxetine 20mg qd, will be slow with titration given his past experience of emotional blunting while on SSRI. Atarax working well for sleep. Positive screen on Katarina BPD screening tool. Continues to present with symptoms of major depression. Willing to have his family involved and signed ROIs (with some exceptions to what he feels comfortable having shared with them). 02/03/21: Patient provided with Katarina BPD screening tool. Starting fluoxetine 20mg qd for MDD and anxiety and adding melatonin to help with phase shift of sleep. Also has atarax available for qhs for sleep. 02/02/21: The patient was admitted to the [facility] ([facility] mental health unit) on q15 min checks (behavioral with suicide precautions) for safety. The patient will participate in group, recreational, and milieu therapies and will be offered additional individual and family sessions as clinically appropriate. Monitor PO intake. D/C Remeron and ofter Vistaril this hs. Considering Abilify or an SNRI. Patient wanted to defer this discussion until tomorrow. Risk Factors Assessment Do You Have Access To A Gun?: No Protective Factors Assessment Employed: No Interval History Identifying Information 20 yo man with history of depression, self-harm, restricted eating and SI who was admitted for worsening depression, self-harm urges and SI with plans. Chief Complaint "I'm learning about better ways to cope with my depression". Review of Systems Sleep Information Total Hours of Sleep: 6.75 Sleep Comments: pt appeared to sleep 3.5 hrs during evening shift. pt given vistaril per rn. pt on q-15 minute checks Meal Information Percent Meal Consumed - Breakfast: 90 Percent Meal Consumed - Lunch: 100 Percent Meal Consumed - Dinner: 100 Subjective Subjective Chart and events of last 24 hours reviewed and discussed with multidisciplinary treatment team including nursing and social work. No acute events reported overnight. Slept well. Eating well. Attending groups. Adherent with medications. Today he reports stable mood with lessening of depression. He did have some fleeting intrusive SI last night but none today. No side effects from medication. Spent more than 20 minutes in the care and coordination of this patient of which greater than 50% was dedicated to counseling and coordination of care. Physical Exam Psychiatric Orientation: alert and oriented x 3 Apperance: appropriately dressed and appropriately groomed Eye Contact: good eye contact Motor Behavior: steady gait and station and no abnormal motor movements Speech: normal rate/rhythm/volume of speech Affect: + flat affect Mood: + depressed mood Thought Process: goal directed thought process Thought Content: reality based without delusions Suicidal Thoughts: + reports suicidal thoughts (fleeting SI last night, none today) Homicidal Thoughts: denies homicidal thoughts Hallucinations: no auditory hallucinations and no visual hallucinations Cognition: recent memory grossly intact, remote memory grossly intact, attention grossly intact and language grossly intact Estimated Intelligence: consistent with education level Insight: + fair insight Judgement: + fair judgement Vital Signs (Past 24 Hours) Last Vital Signs Temp 36.3 C L 02/07/21 06:00 Pulse 85 02/07/21 06:53 Resp 14 02/07/21 06:00 BP 114/73 02/07/21 06:53 Pulse Ox 100 02/01/21 15:30 Results & Data ([facility]) Current Inpatient Medications Current Inpatient Medications: Current Inpatient Medications Acetaminophen (Acetaminophen 325 Mg Tab) 650 mg PO Q4H PRN PRN Reason: Headache or Minor Fever Stop: 03/03/21 17:01 Al Hydrox/Mg Hydrox/Simethicone (Aluminum/Magnesium Susp 30 Ml Udc) 30 ml PO Q4H PRN PRN Reason: GI Upset Stop: 03/03/21 17:01 Last Admin: 02/05/21 12:37 Dose: 30 ml Documented by: Bismuth Subsalicylate (Bismuth Subsalicylate Liqd 236 Ml) 15 ml PO PRN PRN PRN Reason: Loose Stool Stop: 03/03/21 17:01 Fluoxetine HCl (Fluoxetine Hcl 10 Mg Cap) 30 mg PO QAM ANASTASIA Stop: 03/08/21 08:59 Last Admin: 02/07/21 10:18 Dose: 30 mg Documented by: Hydroxyzine HCl (Hydroxyzine Hcl 25 Mg Tab) 25 mg PO Q4H PRN PRN Reason: Anxiety Stop: 03/03/21 17:01 Hydroxyzine HCl (Hydroxyzine Hcl 25 Mg Tab) 50 mg PO HSZ PRN PRN Reason: Anxiety/Insomnia Stop: 03/04/21 21:59 Magnesium Hydroxide (Magnesium Hydroxide Susp 30 Ml Udc) 30 ml PO DAILY PRN PRN Reason: Constipation Stop: 03/03/21 17:01 Melatonin (Melatonin 3 Mg Tab) 3 mg PO HS PRN PRN Reason: Sleep Stop: 03/05/21 12:14 Sodium Chloride (Sodium Chloride 0.65% Na Soln 45 Ml ([place])) 1 - 2 sprays NA PRN PRN PRN Reason: Nasal Dryness/Congestion Stop: 03/03/21 17:01 Trazodone HCl (Trazodone Hcl 50 Mg Tab) 50 mg PO HS [facility] Stop: 03/07/21 21:59 Last Admin: 02/06/21 21:23 Dose: 50 mg Documented by: Mental Health & Subst Abuse Tx Psychiatrist Name of Psychiatrist: being referred to [facility] by TONNY DAVID Therapist Name of Therapist: Soumya Daley Therapist's Date of Therapist Appointment: 02/15/21 Time of Therapist Appointment: 3pm Therapy Appointment Comment: [employer] Equipment Repairer Name of Dairy Equipment Repairer: [facility] FRANKIE Brandt Phone Number for Dairy Equipment Repairer: [phone] Date of Appointment with Dairy Equipment Repairer: 02/09/21 Time of Appointment with Dairy Equipment Repairer: 12 p.m. Case Management Appointment Comment: [facility]- will refer him to [facility] for psychiatry Post Discharge Appointments Primary Care Physician Name Of Family Doctor: [facility] Primary Care Date of Appointment with PCP: 02/12/21 Time of Appointment with PCP: 10 a.m Provider Appointment Comment: [facility] Contact Information Discharge Discharge Address: [address] [place] [address], [address], [place] [address]
[2021-02-07] MEDS: traZODone HCL 50 MG TAB PO SCH (21:51)
[2021-02-08] MEDS: FLUoxetine HCL 10 MG CAP PO SCH (09:05)
--- NOTE | 2021-02-08 17:04 | Psychiatric Progress Note ---
Date of Service February 08, 2021 Impression / Recommendations Impression 20 yo man with history of depression, self-harm, restricted eating and SI who was admitted for worsening depression, self-harm urges and SI with plans. Diagnostically consistent with MDD in addition to possible BPD. He is felt to be at high acute risk given intermittent SI and self-harm urges and in need of inpatient psychiatric treatment. Depression is improving and he is finding CBT and DBT coping skills and cognitive distortions work helpful. Tolerating fluoxetine and having more positive engagements with family. No SI last night or today and he has created a good safety plan and feels in control of his thoughts even when its quiet or he's bored which was typically the time when he experiences more SI. 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 No SI last night or today and he has created a good safety plan and feels in control of his thoughts even when its quiet or he's bored which was typically the time when he had experienced more SI. 02/07/21: Had positive screen on adult ADHD self-report scale. Discussed limitations in that many of these symptoms overlap with depression and anxiety. Offered option to try addition of Wellbutrin to help with concentration, focus and antidepressant effect now versus in the future, he would prefer to discuss with his PCP in the future should concentration issues persist despite improving depression. 02/06/21: Continue with trazodone and prozac. Discussed option to augment with wellbutrin in the future, after 4-6 weeks of prozac, if he finds that concentration and inattention are still problematic. Working on ensuring he has outpatient care since therapy and CBT approaches are helping him here in the hospital. Provided with adult ADHD self-report scale. 02/05/21: He's having trouble sleeping and is interested in trying something besides atarax and melatonin. Discussed risks, benefits and alternatives including trazodone risks of priapism, sedation, and potential for emergence of SI. Patient would like to start trazodone for insomnia and depression. He also consented to increasing the dose of prozac from 20mg to 30mg qd. 02/04/21: Continue with fluoxetine 20mg qd, will be slow with titration given his past experience of emotional blunting while on SSRI. Atarax working well for sleep. Positive screen on Katarina BPD screening tool. Continues to present with symptoms of major depression. Willing to have his family involved and signed ROIs (with some exceptions to what he feels comfortable having shared with them). 02/03/21: Patient provided with Katarina BPD screening tool. Starting fluoxetine 20mg qd for MDD and anxiety and adding melatonin to help with phase shift of sleep. Also has atarax available for qhs for sleep. 02/02/21: The patient was admitted to the [facility] ([facility]) on q15 min checks (behavioral with suicide precautions) for safety. The patient will participate in group, recreational, and milieu therapies and will be offered additional individual and family sessions as clinically appropriate. Monitor PO intake. D/C Remeron and ofter Vistaril this hs. Considering Abilify or an SNRI. Patient wanted to defer this discussion until tomorrow. Risk Factors Assessment Do You Have Access To A Gun?: No Protective Factors Assessment Employed: No Interval History Identifying Information 20 yo man with history of depression, self-harm, restricted eating and SI who was admitted for worsening depression, self-harm urges and SI with plans. Chief Complaint "I'm feeling good". Review of Systems Sleep Information Total Hours of Sleep: 7.25 Sleep Comments: pt appeared to sleep 3.5 hrs during evening shift. pt given vistaril per rn. pt on q-15 minute checks Meal Information Percent Meal Consumed - Breakfast: 100 Percent Meal Consumed - Lunch: 100 Percent Meal Consumed - Dinner: 100 Subjective Subjective Patient was seen & assessed and interval progress reviewed with treatment team nursing and social work. He reports improvement in mood, no SI last night or today. Feels he is "getting better at keeping the thoughts away even when it's quiet at night". He's finding CBT resources very helpful. Reviewed his safety plan and the warning signs and how he can share this with family and friends to help support him should SI or depression worsen after he leaves. Physical Exam Psychiatric Orientation: alert and oriented x 3 Apperance: appropriately dressed and appropriately groomed Eye Contact: good eye contact and + fair eye contact Motor Behavior: steady gait and station and no abnormal motor movements Speech: normal rate/rhythm/volume of speech Affect: + flat affect Mood: no depressed mood and no anxious mood Thought Process: goal directed thought process and linear/logical thought process Thought Content: reality based without delusions Suicidal Thoughts: denies suicidal thoughts (fleeting SI last night, none today) and denies suicidal intent; + reports suicidal plan Homicidal Thoughts: denies homicidal thoughts Hallucinations: no auditory hallucinations and no visual hallucinations Cognition: recent memory grossly intact, remote memory grossly intact, attention grossly intact and language grossly intact Estimated Intelligence: consistent with education level Insight: + limited insight and + fair insight Judgement: + limited judgement and + fair judgement Vital Signs (Past 24 Hours) Last Vital Signs Temp 36.8 C 02/08/21 06:00 Pulse 87 02/08/21 06:36 Resp 16 02/08/21 06:00 BP 130/69 02/08/21 06:36 Pulse Ox 100 02/01/21 15:30 Results & Data ([facility]) Current Inpatient Medications Current Inpatient Medications: Current Inpatient Medications Acetaminophen (Acetaminophen 325 Mg Tab) 650 mg PO Q4H PRN PRN Reason: Headache or Minor Fever Stop: 03/03/21 17:01 Al Hydrox/Mg Hydrox/Simethicone (Aluminum/Magnesium Susp 30 Ml Udc) 30 ml PO Q4H PRN PRN Reason: GI Upset Stop: 03/03/21 17:01 Last Admin: 02/05/21 12:37 Dose: 30 ml Documented by: Bismuth Subsalicylate (Bismuth Subsalicylate Liqd 236 Ml) 15 ml PO PRN PRN PRN Reason: Loose Stool Stop: 03/03/21 17:01 Fluoxetine HCl (Fluoxetine Hcl 10 Mg Cap) 30 mg PO QAM ANASTASIA Stop: 03/08/21 08:59 Last Admin: 02/08/21 09:05 Dose: 30 mg Documented by: Hydroxyzine HCl (Hydroxyzine Hcl 25 Mg Tab) 25 mg PO Q4H PRN PRN Reason: Anxiety Stop: 03/03/21 17:01 Hydroxyzine HCl (Hydroxyzine Hcl 25 Mg Tab) 50 mg PO HSZ PRN PRN Reason: Anxiety/Insomnia Stop: 03/04/21 21:59 Magnesium Hydroxide (Magnesium Hydroxide Susp 30 Ml Udc) 30 ml PO DAILY PRN PRN Reason: Constipation Stop: 03/03/21 17:01 Melatonin (Melatonin 3 Mg Tab) 3 mg PO HS PRN PRN Reason: Sleep Stop: 03/05/21 12:14 Sodium Chloride (Sodium Chloride 0.65% Na Soln 45 Ml ([place])) 1 - 2 sprays NA PRN PRN PRN Reason: Nasal Dryness/Congestion Stop: 03/03/21 17:01 Trazodone HCl (Trazodone Hcl 50 Mg Tab) 50 mg PO HS ANASTASIA Stop: 03/07/21 21:59 Last Admin: 02/07/21 21:51 Dose: 50 mg Documented by: Mental Health & Subst Abuse Tx Psychiatrist Name of Psychiatrist: HERO Psychiatrist's Date of Appointment with Psychiatrist: 02/13/21 Time of Appointment with Psychiatrist: 11am Psychiatric Appointment Comment: [facility], [facility] [id number], [place] [address] Therapist Name of Therapist: Soumya Daley Therapist's Date of Therapist Appointment: 02/15/21 Time of Therapist Appointment: 3pm Therapy Appointment Comment: [employer] Officer Name of Police Officer: [facility] FRANKIE Brandt Phone Number for Police Officer: [phone] Date of Appointment with Police Officer: 02/09/21 Time of Appointment with Police Officer: 12 p.m. Case Management Appointment Comment: [facility]- will refer him to [facility] for psychiatry Post Discharge Appointments Primary Care Physician Name Of Family Doctor: [facility] Primary Care Date of Appointment with PCP: 02/12/21 Time of Appointment with PCP: 10 a.m Provider Appointment Comment: [facility] Contact Information Discharge Discharge Address: [address] [place] [address], [facility] [address], [place] [address]
[2021-02-08] MEDS: traZODone HCL 50 MG TAB PO SCH (22:47)
--- NOTE | 2021-02-09 09:37 | Discharge Summary ---
Date of Service February 09, 2021 History of Present Illness Shoaib reports "always feeling like I can't connect with people" and states that the depression associated with this worsening in the spring given the length of time his college experience was disrupted by COVID. It is difficult for him to self-soothe and he frequently engages in "all or nothing thinking". He feels lonely and the core of his identity is tied to his academics as "that's all I've got", so when he started to fall behind in classes, he became increasingly suicidal. He was seen at [facility] and directed to the ED as he was unable to contract for safety. Suicidal thoughts are persistent and include thoughts to do "something painless like OD on heroin" but states he has never taken heroin. He also views shooting himself with a gun as painless as "it's over immediately." He does not have access to drugs or a weapon but admits morbid preoccupation with a thought about enlisting a homeless person to drag him behind a vehicle. He has some history of cutting, mainly as self-punishment. Last incidence of cutting reportedly 10/09. States around that time he started restricting his food intake instead as he doesn't want "the world to see my pain". He lives with his brother here in town as both students but states they aren't close. He states that he doesn't cut because he doesn't wear a shirt at the apartment and he doesn't want his brother to see. 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 He's lost 30 lbs during that time. He states that he drinks plenty of water so denies dizziness. He is 5'11" and used to weigh 180, currently 143 (estimated 78% IBW). He denies wanting to get to an "ideal weight" and that "it's not about that" but also endorses being fearful of regaining the weight. He does not feel that Remeron has helped his sleep or appetite. The Remeron was started by a psychiatrist in [place] who he feels betrayed him by sharing details of their sessions with his father. He does admit to MJ use to assist sleep and feels more effective than antidepressants which just make him feel "flat". He denies any periods of elevated mood. He also endorses low motivation, he is self-critical and feels guilty and worthless. Physical Exam Vital Signs (Past 24 Hours) Last Vital Signs Temp 36.5 C 02/09/21 09:31 Pulse 62 02/09/21 09:31 Resp 16 02/09/21 09:31 BP 127/77 02/09/21 09:31 Pulse Ox 100 02/09/21 09:31 See admission H&P and DOD summary. Principal Diagnosis Major Depressive Disorder Psychiatric Data See daily stay summary. In short, patient was engaged with the social/therapeutic milieu of the unit, safety was maintained and the patient was cooperative with care. Medication changes included initiation of fluoxetine and titration to 30mg qd, discontinuation of mirtazapine and initiation of trazodone and they tolerated this well. Shoaib feels that some of his long-term inattentive symptoms may be consistent with ADHD rather than anxiety or depression and did have a positive screen on adult ADHD self-report. We discussed that if inattention/difficulty with concentration persists after 4-6 weeks of being on fluoxetine then consideration could be made for augmentation with Wellbutrin XL 150mg versus further titration of fluoxetine. He also feels that he may have BPD and had a positive Katarina screen and was very receptive to engaging with outpatient therapy focused on CBT and DBT to help address these symptoms and challenges. A family session was held and safety plan was completed prior to discharge. Day of Discharge Assessment Today the patient voices readiness for discharge. They note improvement in mood and anxiety. They deny thoughts of harm to self or others. No SI over the last 2 days. Thoughts remain organized and they are clinically improved from admission. He is future-oriented about goals including car design, traveling, seeing more musical performances and getting back to school. While his affect remained mostly restricted he was noted to brighten considerably over the three days leading up to discharge with smiles, engagement in groups and insightful reflections about his safety plan and use of new CBT coping skills. There is no evidence of psychosis. They improved in the hospital with support and medication adjustments. They agree to take medications as prescribed and keep follow-up appointments. At the time of the discharge they are deemed to be stable and appropriate for outpatient level of care. They are not deemed to be at imminent risk of harm to self or others. They are aware of emergency and crisis services. Knows to call 911 or go to nearest emergency care center if in a crisis which cannot be handled as an outpatient. Advance Directives Advance Directives Information Provided: Yes Advance Directives: No Mental Health Advance Directive: No Advance Directives on File: No Living Will: No Power of Streetcar Conductor: No Advance Directives Reason:: Declines as Mental Health Visit. Risk Factors Assessment acute risk is low given no recent SI, improvement in mood and coping skills. Chronic risk is moderate given history of chronic SI in the past and potential B PD though we discussed that his long-term risk can be significantly reduced if he engages with his newly established outpatient therapy and continues to work on CBT and DBT skills. Male: Yes : No Do You Have Access To A Gun?: No Health Problems: No Hopelessness: No Protective Factors Assessment Employed: No Stable Relationships: Yes Supportive Family: Yes Good Rapport with Provider: Yes Discharge Data Lab Results 02/01/21 02/01/21 02/01/21 13:10 13:10 13:10 WBC RBC Hgb Hct MCV MCH MCHC RDW Std Deviation RDW Coeff of Bora Plt Count MPV Immature Gran % (Auto) Neut % (Auto) Lymph % (Auto) Hall % (Auto) Eos % (Auto) Baso % (Auto) Neut # (Auto) Lymph # (Auto) Hall # (Auto) Eos # (Auto) Baso # (Auto) Immature Gran # (Auto) Sodium Potassium Chloride Carbon Dioxide Anion Gap BUN Creatinine Est Cr Clr Drug Dosing Est GFR ( Amer) Est GFR (Non-Af Amer) BUN/Creatinine Ratio Glucose Calcium Total Bilirubin AST ALT Alkaline Phosphatase Total Protein Albumin Globulin Albumin/Globulin Ratio TSH Urine Color Yellow Urine Appearance Clear Urine pH 5.5 Ur Specific [place]bron 1.020 Urine Protein Negative Urine Glucose (UA) Negative Urine Ketones Negative Urine Blood 1+ H Urine Nitrite Negative Urine Bilirubin Negative Urine Urobilinogen Negative Ur Leukocyte Esterase Negative Urine WBC (Auto) 1-5 Urine RBC (Auto) 0-4 U Hyaline Cast (Auto) 1-5 U Epithel Cells (Auto) 5-10 H Urine Bacteria (Auto) Negative Salicylates Urine Opiates Screen Neg Ur Methadone, Qual Neg Acetaminophen Urine Barbiturates Neg Ur Phencyclidine (PCP) Neg U Amphetamin/Meth Scrn Neg MDMA (Ecstasy) Screen Neg U Benzodiazepines Scrn Neg Ur Cocaine Metabolite Neg U Marijuana (THC) Screen Pos H U Marijuana THC Carboxy 812 H Drug Screen Comment SEE NOTE Ethyl Alcohol mg/dL COVID-19 Eval Order SARS-CoV-2, RNA, NAAT 02/01/21 02/01/21 02/01/21 13:15 13:15 13:24 WBC 6.22 RBC 5.67 Hgb 15.7 Hct 47.0 MCV 82.9 MCH 27.7 MCHC 33.4 RDW Std Deviation 40.1 RDW Coeff of Bora 13.3 Plt Count 231 MPV 10.1 Immature Gran % (Auto) 0.0 Neut % (Auto) 42.3 Lymph % (Auto) 45.0 Hall % (Auto) 7.6 Eos % (Auto) 3.7 Baso % (Auto) 1.4 Neut # (Auto) 2.63 Lymph # (Auto) 2.80 Hall # (Auto) 0.47 Eos # (Auto) 0.23 Baso # (Auto) 0.09 Immature Gran # (Auto) 0.00 Sodium Potassium Chloride Carbon Dioxide Anion Gap BUN Creatinine Est Cr Clr Drug Dosing Est GFR ( Amer) Est GFR (Non-Af Amer) BUN/Creatinine Ratio Glucose Calcium Total Bilirubin AST ALT Alkaline Phosphatase Total Protein Albumin Globulin Albumin/Globulin Ratio TSH Urine Color Urine Appearance Urine pH Ur Specific [place] Urine Protein Urine Glucose (UA) Urine Ketones Urine Blood Urine Nitrite Urine Bilirubin Urine Urobilinogen Ur Leukocyte Esterase Urine WBC (Auto) Urine RBC (Auto) U Hyaline Cast (Auto) U Epithel Cells (Auto) Urine Bacteria (Auto) Salicylates Urine Opiates Screen Ur Methadone, Qual Acetaminophen Urine Barbiturates Ur Phencyclidine (PCP) U Amphetamin/Meth Scrn MDMA (Ecstasy) Screen U Benzodiazepines Scrn Ur Cocaine Metabolite U Marijuana (THC) Screen U Marijuana THC Carboxy Drug Screen Comment Ethyl Alcohol mg/dL COVID-19 Eval [facility] SARS-CoV-2, RNA, NAAT NEGATIVE 02/01/21 02/01/21 02/01/21 13:24 13:24 13:24 WBC RBC Hgb Hct MCV MCH MCHC RDW Std Deviation RDW Coeff of Bora Plt Count MPV Immature Gran % (Auto) Neut % (Auto) Lymph % (Auto) Hall % (Auto) Eos % (Auto) Baso % (Auto) Neut # (Auto) Lymph # (Auto) Hall # (Auto) Eos # (Auto) Baso # (Auto) Immature Gran # (Auto) Sodium 138 Potassium 4.5 Chloride 107 Carbon Dioxide 26 Anion Gap 5.0 BUN 12 Creatinine 0.98 Est Cr Clr Drug Dosing 110.5 Est GFR ( Amer) 128.1 Est GFR (Non-Af Amer) 110.5 BUN/Creatinine Ratio 12.6 Glucose 91 Calcium 10.1 Total Bilirubin 0.7 AST 8 L ALT 19 Alkaline Phosphatase 93 Total Protein 8.8 H Albumin 4.2 Globulin 4.6 H Albumin/Globulin Ratio 0.9 TSH 0.558 Urine Color Urine Appearance Urine pH Ur Specific [place] Urine Protein Urine Glucose (UA) Urine Ketones Urine Blood Urine Nitrite Urine Bilirubin Urine Urobilinogen Ur Leukocyte Esterase Urine WBC (Auto) Urine RBC (Auto) U Hyaline Cast (Auto) U Epithel Cells (Auto) Urine Bacteria (Auto) Salicylates < 1.7 L Urine Opiates Screen Ur Methadone, Qual Acetaminophen < 2 L Urine Barbiturates Ur Phencyclidine (PCP) U Amphetamin/Meth Scrn MDMA (Ecstasy) Screen U Benzodiazepines Scrn Ur Cocaine Metabolite U Marijuana (THC) Screen U Marijuana THC Carboxy Drug Screen Comment Ethyl Alcohol mg/dL < 3.0 COVID-19 Eval Order SARS-CoV-2, RNA, NAAT Hospital Course (1) Depression with suicidal ideation: (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 No SI last night or today and he has created a good safety plan and feels in control of his thoughts even when its quiet or he's bored which was typically the time when he had experienced more SI. 02/07/21: Had positive screen on adult ADHD self-report scale. Discussed limitations in that many of these symptoms overlap with depression and anxiety. Offered option to try addition of Wellbutrin to help with concentration, focus and antidepressant effect now versus in the future, he would prefer to discuss with his PCP in the future should concentration issues persist despite improving depression. 02/06/21: Continue with trazodone and prozac. Discussed option to augment with wellbutrin in the future, after 4-6 weeks of prozac, if he finds that concentration and inattention are still problematic. Working on ensuring he has outpatient care since therapy and CBT approaches are helping him here in the hospital. Provided with adult ADHD self-report scale. 02/05/21: He's having trouble sleeping and is interested in trying something besides atarax and melatonin. Discussed risks, benefits and alternatives includi ng trazodone risks of priapism, sedation, and potential for emergence of SI. Patient would like to start trazodone for insomnia and depression. He also consented to increasing the dose of prozac from 20mg to 30mg qd. 02/04/21: Continue with fluoxetine 20mg qd, will be slow with titration given his past experience of emotional blunting while on SSRI. Atarax working well for sleep. Positive screen on Katarina BPD screening tool. Continues to present with symptoms of major depression. Willing to have his family involved and signed ROIs (with some exceptions to what he feels comfortable having shared with them). 02/03/21: Patient provided with Katarina BPD screening tool. Starting fluoxetine 20mg qd for MDD and anxiety and adding melatonin to help with phase shift of sleep. Also has atarax available for qhs for sleep. 02/02/21: The patient was admitted to the [facility] on q15 min checks (behavioral with suicide precautions) for safety. The patient will participate in group, recreational, and milieu therapies and will be offered additional individual and family sessions as clinically appropriate. Monitor PO intake. D/C Remeron and ofter Vistaril this hs. Considering Abilify or an SNRI. Patient wanted to defer this discussion until tomorrow. Mental Health & Subst Abuse Tx Psychiatrist Name of Psychiatrist: HERO Psychiatrist's Date of Appointment with Psychiatrist: 02/13/21 Time of Appointment with Psychiatrist: 11am Psychiatric Appointment Comment: [facility], [facility] [address], [place] [address] Therapist Name of Therapist: Soumya Daley Therapist's Date of Therapist Appointment: 02/15/21 Time of Therapist Appointment: 3pm Therapy Appointment Comment: [employer] Plating Foreman Name of Plating Foreman: Kolby Brandt Phone Number for Plating Foreman: [phone] Date of Appointment with Plating Foreman: 02/09/21 Time of Appointment with Plating Foreman: 12 p.m. Case Management Appointment Comment: [facility]- will refer him to [facility] for psychiatry Post Discharge Appointments Primary Care Physician Name Of Family Doctor: [facility] Primary Care Date of Appointment with PCP: 02/12/21 Time of Appointment with PCP: 10 a.m Provider Appointment Comment: [facility] Other #1: Name of Aftercare Appointment: [facility] Pratt Phone Number of Aftercare Appointment: [phone] Date of Aftercare Appointment: 02/13/21 Time of Aftercare Appointment: 2 pm Aftercare Appointment Comment: By Zoom:[email or web address] Contact Information Discharge Discharge Address: [address] [place] [id number] Discharge Plan Discharge Items Patient Disposition: Home - Self-Care Reason For Visit: MDD Discharge Diagnosis: Major Depressive Disorder Activity: Resume your previous activity Non-emergency contact: Primary Care Provider and Therapist Call non-emergency contact if: you have any medication questions and your symptoms worsen Follow-up/Referrals: PCP,NO [Primary Care Provider] - Diet: Regular Addtl Attending Provider Instructions: SPECIAL CARE INSTRUCTIONS: 1. Follow through with your scheduled aftercare appointments. If unable to keep an appointment, please call to reschedule. 2. Take your medication only as prescribed. Medication should not be changed or stopped without the approval of your doctor. In the event of worsening symptoms or concerns about side effects, contact your doctor immediately. 3. Utilize new healthy coping skills, anger management skills, and stress management skills learned during your hospitalization. Journal feelings and process them with a support person. Identify stressors or situations that may result in relapse, deterioration or inappropriate behaviors and develop a plan to deal with those issues. 4. If your coping skills are ineffective and you are in crisis, contact your outpatient providers for direction. If unable to reach your providers, please call the [facility] CRISIS LINE AT , go to the [facility] walk-in center at [address], [address], [place], or go to the closest Emergency Room. 5. Avoid alcohol and un-prescribed drugs. 6. You have been provided with the Mental Health Advance Directives Pamphlet for your review. 7. Your condition is stable for discharge to outpatient level of care, but recovery is an ongoing process. Ifthoughts to harm yourself or others return, follow the safety plan developed during your stay. Planning for a safe return home includes securing weapons. Our treatment team recommends weaponsbe removed from the home until your outpatient provider reassesses your progress. In rare cases where the items themselvescannot be removed, guns and ammunitionshould be secured separatelyand keys stored by a reliable personoutside of the home. If you were admitted on an involuntary commitment, the police or other legal authorities may be involved in this process. AFTERCARE APPOINTMENTS: * Please call your insurance company prior to your scheduled appointment to confirm your aftercare providers are covered. Take your insurance information to your appointments. WHO TO CALL AND WHEN: Medical Emergencies: For questions or emergencies related to your hospital stay, please contact the [facility] Behavioral Health Unit at [phone]. A fitness services manager is on-call 11/11 for the Behavioral Health Unit for emergencies At any time you feel your situation is an emergency, you may also call 911 immediately. Pending Studies at Discharge: No Stand-Alone Forms: My [facility] Medications and DC Order Prescriptions: New trazodone 50 mg Tablet 50 mg PO HS 30 Days Qty: 30 RF: 0 fluoxetine 10 mg Capsule 30 mg PO QAM 30 Days Qty: 90 RF: 0 Discontinued Remeron 15 mg tablet 15 mg PO HS RF: 0 Discharge Orders: Discharge Order (Routine); Ordered 02/09/21 Ordered By: Mayra Cummings/Other Patient Handouts: Depression: Tips to Help Yourself Admission Data Admit Date/Time: 02/01/21 17:02 Attending Provider: Mayra Rivera Admit Provider: Elli Mann Primary Care Provider: PCP,NO Other Interventions: Discharge Summary Assessment (RN) Last Done: 02/09/21 09:31 PSY Interdisciplinary Discharge Planning Last Done: 02/08/21 10:50 Coding Level of Care Code 27151 D/C day mgmt > 30 min Diagnoses Depression with suicidal ideation F32.A; R45.851 Avoidant and restrictive food intake disorder F50.82 Borderline personality disorder F60.3 Time Spent (min) 45
[2021-02-09] MEDS: FLUoxetine HCL 10 MG CAP PO SCH (09:47)
== END 2021-02-09 10:04 | disposition home or self-care (01) | DRG 881 ==
LOC: ED 12:47 → SUATTDRO 17:02 → 3S 17:02